=== PATIENT | female | born 1955 | race Caucasian/White ===

== ENCOUNTER 2018-11-04 14:34 | Outpatient (CLI) | payer BC | END 2018-11-04 14:35 | disposition home or self-care (01) | LOC: CP 14:34 | PROVIDERS: ATTEND Physician Assistant | DX: R06.02 Shortness of breath (principal) | CPT/HCPCS: 94010; 94727 ==

== ENCOUNTER 2022-05-15 10:32 | Outpatient (CLI) | payer BC | END 2022-05-15 10:33 | disposition home or self-care (01) | LOC: BICMAMMO 10:32 | PROVIDERS: ATTEND Physician Assistant | DX: Z12.31 Encounter for screening mammogram for malignant neoplasm of breast (principal); Z80.3 Family history of malignant neoplasm of breast; Z98.82 Breast implant status | CPT/HCPCS: 77063; 77067 ==